=== PATIENT | female | born 1960 | race Caucasian/White ===

== ENCOUNTER → 2019-04-04 | Outpatient (CLI) | payer OTHER ==
[2019-04-04 13:23] LABS: INR 0.8 (<1.2); Prothrombin Time 9.4 sec (9.0-12.0)
[2019-04-04 13:24] LABS: HCT 40.6 % (34.0-46.0); HGB 13.1 gm/dL (11.4-16.0); MCH 31.2 pg (25.0-35.0); MCHC 32.3 g/dL (31.0-37.0); MCV 96.6 fL (80.0-100.0); Mean Platelet Volume 6.8; Platelet Count 272 k/uL (150-450); RDW 14.3 % (11.5-15.5)
[2019-04-04 13:25] LABS: Albumin 4.3 g/dL (3.5-5.0); Calcium 9.7 mg/dL (8.4-10.2); Potassium 3.9 mmol/L (3.5-5.1); Total Bilirubin 0.5 mg/dL (0.2-1.3); Total Protein 6.8 g/dL (6.3-8.2)
[2019-04-04 14:08] LABS: Appearance,Urine Clear (Clear); Bacteria,Urine Rare /hpf; Bilirubin,Urine Negative (Negative); Blood,Urine Small (Negative); Color,Urine Yellow; Glucose,Urine (UA) Negative (Negative); Ketones,Urine Negative (Negative); Leukocyte Esterase,Urine Negative (Negative); Mucus,Urine Rare /hpf; Nitrite,Urine Negative (Negative); PH, Urine 5.5 (5.0-8.0); Protein,Urine Negative (Negative); RBC,Urine 1 /hpf (0-5); Specific Gravity,Urine 1.019 (1.001-1.035); Squamous Epithelial Cell,Urine 5 /hpf (0-4); Urobilinogen,Urine <2.0 mg/dL (<2.0); WBC,Urine 1 /hpf (0-5)
== END | disposition home or self-care (01) ==
LOC: LABPAT 12:31
PROVIDERS: ATTEND Orthopaedic Surgery
DX: Z01.812 Encounter for preprocedural laboratory examination (principal); M16.11 Unilateral primary osteoarthritis, right hip
CPT/HCPCS: 36415; 80053; 81001; 85027; 85610; 85730; 87070

== ENCOUNTER 2019-04-14 11:22 | Inpatient (IN) | payer OTHER ==
[~2019-04-14 11:22] MED LIST: ACETAMINOPHEN TAB 500 MG TAB PO ONE; DEXAMETHASONE SOD PHOSPHATE 10 MG/ML 1 ML VIAL IV ONE; LIDOCAINE 1% 20 ML VIAL (10MG/ML) FOR IV START INTRADERMA PRN; MELOXICAM 7.5 MG TAB PO ONE; ONDANSETRON 4 MG/2 ML VIAL IVP PRN; TRANEXAMIC ACID 1,000 MG in SODIUM CHLORIDE 0.9% 100 ML IVPB ONE
[2019-04-14] MEDS ORDERED: ROPIVACAINE 246.25 MG, EPINEPHrine 0.5 MG, KETOROLAC 30 MG, cloNIDine HCL/PF 80 MCG, WA... MISCELLANE ONE ×5 (11:49)
[2019-04-14] MEDS: LACTATED RINGERS 1,000 ML IV SCH (12:22)
[2019-04-14] MEDS ORDERED: hydrOXYzine PAMOATE 25 MG CAP PO PRN (13:39)
[2019-04-14] MEDS ORDERED: DIAZEPAM 5 MG TAB PO PRN (13:39)
[2019-04-14] MEDS ORDERED: HYDROcodone/APAP 5-325MG 1 EACH TAB PO PRN (13:39)
[2019-04-14] MEDS ORDERED: NALOXONE 0.4 MG/ML 1 ML VIAL IV PRN (13:39)
[2019-04-14] MEDS ORDERED: ONDANSETRON 4 MG/2 ML VIAL IVP PRN (13:39)
[2019-04-14] MEDS ORDERED: HYDROmorphone 1 MG/ML 1 ML SYRINGE IVP PRN (13:39)
[2019-04-14] MEDS ORDERED: HYDROmorphone 0.5 MG/0.5 ML SYRINGE IVP PRN ×2 (13:39)
[2019-04-14] MEDS ORDERED: MAGNESIUM HYDROXIDE 2,400 MG/10 ML CUP PO PRN (13:39)
[2019-04-14] MEDS ORDERED: SODIUM CHLORIDE 0.9% 100 ML BAG ONE (13:45)
[2019-04-14] MEDS ORDERED: MIDAZOLAM 2 MG/2 ML VIAL ONE (13:45)
[2019-04-14] MEDS ORDERED: PROPOFOL 10 MG/ML 20 ML VIAL IV ONE (13:45)
[2019-04-14] MEDS ORDERED: TRANEXAMIC ACID 1,000 MG/10 ML VIAL ONE (13:45)
[2019-04-14] MEDS ORDERED: LACTATED RINGERS 1,000 ML BAG IV ONE (13:45)
[2019-04-14] MEDS ORDERED: fentaNYL (PF) 50 MCG/ML 2 ML AMP ONE (13:45)
[2019-04-14] MEDS ORDERED: ceFAZolin 3,000 MG in SODIUM CHLORIDE 0.9% IRRIGATIO 3,000 ML IRRIGATION ONE (13:52)
[2019-04-14] MEDS ORDERED: LACTATED RINGERS 1,000 ML IV ONE ×2 (14:31→16:32)
--- NOTE | 2019-04-14 15:45 | P.OP ---
Date of Procedure: 04/14/19 Preoperative Diagnosis: Severe osteoarthritis right hip Postoperative Diagnosis: Severe osteoarthritis right hip Procedure(s) Performed: Right total hip arthroplasty with a direct anterior approach Implants: Hernandez and nephew Polarstem size 4 standard Hernandez & Nephew R3, 3 hole acetabular shell, 52 mm Hernandez [employer] Nephew reflection 6.5 mm cancellus screw, 20 mm 2 Hernandez [employer] Nephew R3, XLPE 20 acetabular liner Hernandez & Nephew Oxinium femoral head 36 m, +0 All components were press-fit. The articulation is Oxinium on polyethylene. Anesthesia: spinal Surgeon: Dong Solares Chief Petroleum Engineer #1: Duyen Luu Estimated Blood Loss (ml): 120 (60 mL returned with Cell Saver) Pathology: other (Femoral head) Condition: stable Disposition: PACU Indications for Procedure: After failure of conservative treatment we discussed the surgical and nonsurgical treatment options at length. Patient wishes to proceed with a total hip arthroplasty with a direct anterior approach. Complications specific to this procedure were discussed at length, including but not limited to infection, leg length discrepancy, dislocation, and nerve injury. Patient is aware of all these complications and informed consent was obtained Operative Findings: The operative findings are consistent with severe osteoarthritis of the right hip Description of Procedure: Patient was seen and evaluated in the preoperative area, consent was reviewed, and the surgical site was marked with a skin marker. Patient was then brought to the operating room and given prophylactic antibiotics intravenously. 1 g of Tranexamic acid was also given. A spinal anesthetic was administered by the anesthesia department. The patient was then placed on the [place] table with the bony prominences well-padded. The hip area was then prepped and draped in usual sterile fashion. A universal timeout was then performed, which confirmed the patient's name, surgical site, ALLERGIES, and procedure being performed. Next the incision site was located at 1 cm distal and 1 cm lateral to the anterior superior iliac spine. The skin and subcutaneous tissues were sharply incised. Incision was carefully dissected down to the fascia overlying the tensor fascia ayanna muscle. This fascia was then incised in line with the incision. Next, using blunt finger dissection, the tensor fascia ayanna muscle was dissected off its investing fascia. The muscle was then carefully retracted laterally with a cobra retractor over the lateral neck of the femur. Next, the circumflex vessels were identified and cauterized using the AquaMantis device. The anterior hip capsule was then exposed. The capsule was then opened and an inverted T fashion. Cobra retractors were then placed intracapsularly. The proximal femur was then visualized. The femoral neck was then osteotomized appropriate level above the lesser trochanter. Small amount of traction was placed with the [place] table. A small wedge of bone was then removed from the remaining femoral head. Next, using a corkscrew femoral head was easily removed from the acetabulum. On gross visual inspection, the femoral head had complete loss of articular cartilage in mu ltiple periarticular osteophytes. Attention was then turned to the acetabulum. the acetabulum was exposed and any remaining labrum was excised. Sequential reaming of the acetabulum was performed using fluoroscopic guidance. When the appropriate size was reached, a trial was then placed. The position and fit of the trial was checked with fluoroscopy. The trial was then removed. Then, using fluoroscopic guidance, the final implant was impacted at 20 of anteversion and 40 of abduction, and fully seated in the acetabulum. 2 screws were then placed in the acetabulum. Again fluoroscopy was used to check position of the screws. Next, the liner was then impacted, with a 20 elevated liner located in the anterior superior quadrant. Component locking was confirmed. Attention was then directed to the femur. With the aid of the [place] table, the femur was externally rotated to approximately 130, extended, and abducted under the opposite leg. A side hook was then placed under the proximal femur, and the side hook elevator was used to elevate the proximal femur. Retractors were then placed. A capsular release was performed, as well as a release of the conjoined tendon, which afforded excellent visualization of the proximal femur. Next, a box osteotome was used to lateralize the proximal femur. A magazine hand was then used to locate the femoral canal. Sequential broaching was then performed with appropriate size which afforded excellent fixation in the proximal femur. A trial was then placed with appropriate head and neck, and the hip was gently reduced with the aid of the [place] table. Fluoroscopy was then used to check position of the components, as well as to ensure equal leg lengths. The hip was then gently dislocated and the trials were then removed. Final implants were then impacted and the hip was again reduced. Final fluoroscopic x-rays confirmed that the components were in anatomic position, as well as equal leg lengths. The hip was also taken through range of motion, and found to be stable. The hip was then copiously irrigated with antibiotic solution with pulsatile lavage. The hip was then irrigated with Irrisept solution. The soft tissues were then injected with a ropivacaine solution, which consisted of 246.25 mg of ropivacaine, 0.5 mg of epinephrine, 30 mg of Toradol, 80 g of clonidine, and 48.45 mL of sterile water, for a total of 100 mL of fluid injected. A second dose of 1 g of Tranexamic acid was also given. the fascia was then closed with 2-0 strata fix suture. The subcutaneous tissue was closed with 3-0 Vicryl. The subcuticular tissue was closed with 3-0 strata fix suture. The skin was then closed with Dermabond glue and a sterile silver dressing. The patient was then transferred to the recovery room in stable co ndition. The surgery assistant SENDY Ellis was required due to the complexity of surgery, and the need for skilled salesperson surgical appliances for positioning, draping, exposure, retraction, and closure of the wound.
[2019-04-14] MEDS ORDERED: KETOROLAC 30 MG/ML 1 ML VIAL IVP ONE (16:03)
[2019-04-14] MEDS: HYDROmorphone 0.5 MG/0.5 ML SYRINGE IVP PRN ×4 (16:04→17:13)
--- NOTE | 2019-04-14 17:56 | XR ---
Fluoroscopy History: RT ANTERIOR HIP RT ANTERIOR HIP. 1 MN 20 SECS FL. 2 IMAGES SAVED
[2019-04-14] MEDS ORDERED: CITALOPRAM HYDROBROMIDE 20 MG TAB PO SCH (21:00)
[2019-04-14] MEDS ORDERED: ARIPiprazole 15 MG TAB PO SCH (21:00)
[2019-04-14] MEDS ORDERED: SENNOSIDES-DOCUSATE SODIUM 1 EACH TAB PO SCH (21:00)
[2019-04-14] MEDS ORDERED: lamoTRIgine 100 MG TAB PO SCH (21:00)
--- NOTE | 2019-04-14 21:26 | P.CONS ---
History of Present Illness - Reason for Consult Consult date: 04/14/19 medical management post op Requesting physician: Dong Solares - Chief Complaint scheduled right total hip arthroplasty - History of Present Illness 58-year-old female with history of depression Patient presented to Hospital for scheduled right total hip arthroplasty patient has been complaining of right hip pain over the past 4 years getting worse despite conventional conservative management. Patient reports that over the past week she couldn't even walk due to pain in her right hip. Patient had surgery done today tolerated procedure per day well known observed immediate postoperative complications denies any chest pain or trouble breathing patient tolerated by mouth intake. Patient reports that pain is well tolerated at this time. Patient reports history of smoking and depression. No other medical problems Patient currently denies any abdominal pain nausea vomiting fevers chills denies any leg pain. Review of Systems Pertinent positives as noted in HPI. All other systems were reviewed and are negative Past Medical History Past Medical History: GERD/Reflux, Hearing Disorder / Deafness, Hyperlipidemia, Osteoarthritis (OA) Additional Past Medical History / Comment(s): Hx heart murmur, diverticulosis, IBS, slight hearing loss bilaterally. History of Any Multi-Drug Resistant Organisms: None Reported Past Surgical History: Section, Cholecystectomy, Hernia Repair Additional Past Surgical History / Comment(s): Right ovary removed. Past Psychological History: Depression Smoking Status: Current every day smoker Past Alcohol Use History: None Reported Additional Past Alcohol Use History / Comment(s): Has been smoking for 44 yrs, 1 - 1 1/2PPD. Past Drug Use History: None Reported - Past Family History Sister(s) Family Medical History: Cancer Additional Family Medical History / Comment(s): Breast cancer. Medications and Allergies Home Medications Medication Instructions Recorded Confirmed Type ARIPiprazole [Abilify] 15 mg PO HS 04/08/19 04/14/19 History Citalopram Hydrobromide [CeleXA] 20 mg PO HS 04/08/19 04/14/19 History Ranitidine HCl [Zantac] 300 mg PO BID 04/08/19 04/14/19 History lamoTRIgine [LaMICtal] 200 mg PO HS 04/08/19 04/14/19 History Allergies Allergy/AdvReac Type Severity Reaction Status Date / Time alprazolam [From Xanax] Allergy Confusion Verified 04/14/19 15:41 phenobarbital Allergy Rash/Hives Verified 04/14/19 15:41 tramadol Allergy Anaphylaxis Verified 04/14/19 15:41 Physical Exam Vitals: Vital Signs Temp Pulse Pulse Resp BP Pulse Ox 04/14/19 18:00 98 F 60 12 123/77 93 L 04/14/19 17:33 94 16 115/66 93 L 04/14/19 17:03 67 18 136/65 04/14/19 16:33 66 18 151/69 92 L 04/14/19 16:17 67 18 164/70 92 L 04/14/19 16:02 70 16 164/70 92 L 04/14/19 15:46 97.7 F 71 17 128/65 95 04/14/19 11:45 97.2 F L 64 18 177/75 95 Intake and Output 04/14/19 04/14/19 04/14/19 06:59 14:59 22:59 Intake Total 1451 900 Output Total 120 Balance 1451 780 Intake: IV 1451 900 Output: Estimated Blood Loss 120 Constitutional: No acute distress, conversant, pleasant Eyes: Anicteric sclerae, moist conjunctiva, no lid-lag Pupils equal round reactive to light ENMT: NC/AT Oropharynx clear, no erythema, or exudates Neck: Supple, FROM, no masses, or JVD No carotid bruits No thyromegaly Lungs: Clear to auscultation Clear to percussion Normal respiratory effort, no accessory muscle use Cardiovascular: Heart regular in rate and rhythm, No murmurs, gallops, or rubs No peripheral edema Abdominal: Soft Nontender, no guarding, rebound or rigidity Abdomen moving with respiration Normoactive bowel sounds No hepatomegaly, No splenomegaly No palpable mass No abdominal wall hernia noted Skin: Normal temperature, tone, texture, turgor No induration No subcutaneous nodules No rash, lesions No ulcers Extremities: Surgical dressing over the right hip looks clean dry and inta ct no evidence of bruising swelling or ecchymosis. No digital cyanosis No clubbing Pedal pulses intact and symmetrical Radial pulses intact and symmetrical No calf tenderness Psychiatric: Alert and oriented to person, place and time Appropriate affect fair judgment Neuro Muscles Strength 5/5 in all 4 extremities with limited exam over right lower extremity due to recent surgery Sensation to light touch grossly present throughout Cranial nerves II-XII grossly intact No focal sensory deficits Lymphatics: no palpable cervical or supraclavicular , or inguinal lymph nodes Assessment and Plan Assessment: 58-year-old female with history of depression admitted as inpatient for scheduled right total hip arthroplasty tolerated procedure pre-well medicine consulted for medical management postop. Patient seems to have tolerated procedure well no observed immediate complications postoperatively Plan: History of depression Continue home medications Tobacco smoking Counseled to quit smoking Nicotine replacement therapy offered Right hip osteoarthritis status post right total hip arthroplasty postoperative day 0 Tolerated procedure well Management of pain and DVT prophylaxis per orthopedics Follow up labs in a.m. CBC and basic metabolic panel Thank you for allowing us to participate in the care of this patient. Do not hesitate to contact us with questions. Someone can be reached from the [facility] hospitalist group at all hours of the day at [phone].
[2019-04-14] MEDS: SODIUM CHLORIDE 0.9% 1,000 ML IV SCH ×2 (21:42→22:54)
[2019-04-14] MEDS: FAMOTIDINE 20 MG TAB PO SCH (22:23)
[2019-04-14] MEDS: ASPIRIN 325 MG TAB PO SCH (22:23)
[2019-04-14] MEDS: HYDROcodone/APAP 5-325MG 1 EACH TAB PO PRN (22:53)
[2019-04-15] MEDS: NICOTINE 21MG/24HR PATCH TRANSDERM SCH ×2 (00:23→08:11)
[2019-04-15 01:10] VITALS: BMI 33.0
[2019-04-15 05:55] VITALS: RESP 16
[2019-04-15 07:12] LABS: Basophils % (A) 0 %; Eosinophils # (A) 0.1 k/uL (0-0.7); Eosinophils % (A) 1 %; HCT 35.3 % (34.0-46.0); HGB 11.7 gm/dL (11.4-16.0); Lymphocytes # (A) 1.6 k/uL (1.0-4.8); Lymphocytes % (A) 16 %; MCH 31.7 pg (25.0-35.0); MCHC 33.2 g/dL (31.0-37.0); MCV 95.4 fL (80.0-100.0); Mean Platelet Volume 6.6; Monocytes # (A) 0.8 k/uL (0-1.0); Monocytes % (A) 8 %; Neutrophils # (A) 7.4 k/uL (1.3-7.7); Neutrophils % (A) 74 %; Platelet Count 223 k/uL (150-450)
[2019-04-15] MEDS: HYDROcodone/APAP 5-325MG 1 EACH TAB PO PRN (07:18)
[2019-04-15 07:34] LABS: Calcium 9.1 mg/dL (8.4-10.2); Potassium 4.2 mmol/L (3.5-5.1)
[2019-04-15] MEDS: ASPIRIN 325 MG TAB PO SCH (08:08)
[2019-04-15] MEDS: MELOXICAM 7.5 MG TAB PO SCH ×2 (08:09→09:39)
[2019-04-15] MEDS: FAMOTIDINE 20 MG TAB PO SCH (08:09)
[2019-04-15 08:27] VITALS: BP 117/74; PULSE 71; TEMP 97.4
[2019-04-15] MEDS: LACTATED RINGERS 1,000 ML IV SCH (10:09)
--- NOTE | 2019-04-15 10:24 | P.PN ---
Subjective Progress Note Date: 04/15/19 Patient seen and examined at bedside, laying in bed and reports some lower back and tailbone pain denies any pain in the right hip, has been up and ambulatory. No acute events overnight Objective - Vital Signs Vital signs: Vital Signs Temp 97.4 F L 04/15/19 07:28 Pulse 71 04/15/19 07:28 Resp 16 04/15/19 04:00 BP 117/74 04/15/19 07:28 Pulse Ox 92 L 04/15/19 07:28 Intake & Output 04/14/19 04/15/19 04/15/19 18:59 06:59 18:59 Intake Total 2351 Output Total 120 Balance 2231 Intake: IV 2351 Output: Estimated Blood Loss 120 Other: Voiding Method Toilet # Voids 1 - Exam Constitutional: No acute distress, conversant, pleasant Eyes: Anicteric sclerae, moist conjunctiva, no lid-lag, PERRLA ENMT: NC/AT,Oropharynx clear, no erythema, exudates Neck:Supple, FROM, no masses, or JVD, No carotid bruits; No thyromegaly Lungs: Clear to auscultation, Clear to percussion, Normal respiratory effort, no accessory muscle use Cardiovascular: Heart regular in rate and rhythm, No murmurs, gallops, or rubs no peripheral edema Abdominal: Soft Nontender, nom distended, no guarding, no rebound or rigidity, Normoactive bowel sounds No hepatomegaly, No splenomegaly, No palpable mass No abdominal wall hernia noted Skin: Dressings on the right hip looked clean dry and intact no evidence of any severe bruising or ecchymosis Extremities:No digital cyanosis No clubbing, Pedal pulses intact and symmetrical Radial pulses intact and symmetrical Normal gait and station, No calf tenderness Psychiatric: Alert and oriented to person, place and time, Appropriate affect Intact judgement Neuro: Muscles Strength 5/5 in all 4 extremities, Sensation to light touch grossly present throughout, Cranial nerves II-XII grossly intact. No focal sensory deficits - Labs CBC & Chem 7: 04/15/19 06:33 04/15/19 06:33 Labs: Abnormal Lab Results - Last 24 Hours (Table) 04/15/19 04/15/19 Range/Units 06:33 06:33 RBC 3.70 L (3.80-5.40) m/uL BUN 19 H (7-17) mg/dL Assessment and Plan (1) Depression Narrative/Plan: * Continue home medications Current Visit: Yes Status: Chronic Code(s): F32.9 - MAJOR DEPRESSIVE DISORDER, SINGLE EPISODE, UNSPECIFIED SNOMED Code(s): 25585559 (2) Smoking Current Visit: Yes Status: Chronic Code(s): F17.200 - NICOTINE DEPENDENCE, UNSPECIFIED, UNCOMPLICATED SNOMED Code(s): 45148794 (3) Osteoarthritis of right hip Current Visit: Yes Status: Chronic Code(s): M16.11 - UNILATERAL PRIMARY OSTEOARTHRITIS, RIGHT HIP SNOMED Code(s): 255473837504644 (4) S/P total hip arthroplasty Current Visit: Yes Status: Acute Code(s): Z96.649 - PRESENCE OF UNSPECIFIED ARTIFICIAL HIP JOINT SNOMED Code(s): 468659092797 Plan: * The patient doing well hemodynamically stable * Medically cleared for discharge we'll sign off today * For further questions or concerns please do not hesitate to contact some inpatient team
--- NOTE | 2019-04-15 12:10 | P.DS ---
Providers Date of admission: 04/14/19 11:22 Expected date of discharge: 04/15/19 Attending physician: Dong Solares Consults: 04/14/19 13:39 Consult Physician Routine Consulting Provider: Oralia Mckinley Consult Reason/Comments: medical management Do you want consulting provider notified?: Yes Primary care physician: Bal Bentley - Discharge Diagnosis(es) (1) S/P total hip arthroplasty Current Visit: Yes Status: Acute (2) Osteoarthritis of right hip Current Visit: Yes Status: Chronic Hospital Course: This is a 58-year-old female with known history of degenerative arthritis of the right hip. The patient presents for evaluation. After discussion and consideration patient elects to proceed with total hip arthroplasty. The patient is seen preoperatively by Dr. Solares and medically cleared for surgery by their primary care physician. Patient is admitted to [facility] on 04/14/2019 for total hip arthroplasty. The procedures performed without complication or sequelae. The patient is doing well postoperatively. Labs and vital signs are stable on day of discharge. On day of discharge patient's hip incision is healing well. There is minimal erythema. There is no drainage noted at this time. There is minimal soft tissue swelling to the hip and thigh. Patient has full foot and ankle motion without difficulty or pain. Calf is soft and nontender to palpation. Neurovascular status to the right lower extremity is intact. Patient is discharged home in good condition. Opioid start talking form is reviewed and signed at patient bedside. Please see med rec for accurate list of home medications. Plan - Discharge Summary Discharge Rx Participant: No New Discharge Prescriptions: New Aspirin 325 mg PO BID #60 tab HYDROcodone/APAP 5-325MG [[place] 5-325] 1 - 2 tab PO Q6HR PRN #56 tab PRN Reason: Pain Sennosides [Senokot] 1 tab PO BID #60 tablet No Action lamoTRIgine [LaMICtal] 200 mg PO HS Ranitidine HCl [Zantac] 300 mg PO BID Citalopram Hydrobromide [CeleXA] 20 mg PO HS ARIPiprazole [Abilify] 15 mg PO HS Discharge Medication List ARIPiprazole [Abilify] 15 mg PO HS 04/08/19 [History] Citalopram Hydrobromide [CeleXA] 20 mg PO HS 08/06/19 [History] Ranitidine HCl [Zantac] 300 mg PO BID 04/08/19 [History] lamoTRIgine [LaMICtal] 200 mg PO HS 04/08/19 [History] Aspirin 325 mg PO BID #60 tab 04/15/19 [Rx] HYDROcodone/APAP 5-325MG [[place] 5-325] 1 - 2 tab PO Q6HR PRN #56 tab 04/15/19 [Rx] Sennosides [Senokot] 1 tab PO BID #60 tablet 04/15/19 [Rx] Follow up Appointment(s)/Referral(s): Dong Solares DO [Doctor of Osteopathic Medicine] - 2 Weeks Activity/Diet/Wound Care/Special Instructions: Weightbearing as tolerated with walker. Leave dressing intact. Dressing may be removed by home care nurse or by patient in 10 days. May shower with dressing on. Please follow-up with [facility] in 2 weeks and call with any questions or concerns, . Discharge Disposition: HOME WITH HOME HEALTH SERVICES
--- NOTE | 2019-04-16 21:30 | CDI ---
Documentation Clarification Form Date: 04/16/2019 9:20:00 PM From: Nevin Balderas Phone: If you have a question regarding this query, please contact Maricarmen Aaron at [phone] between 8am and 5pm. Admit Date: 04/14/2019 11:22:00 AM Patient Name: Maya Macedo Visit Number: [id number] Discharge Date: 04/15/2019 1:58:00 PM ATTENTION: The Clinical Documentation Specialists (CDI) and [facility] Coding Staff appreciate your assistance in clarifying documentation. Please respond to the clarification below the line at the bottom and electronically sign. The CDI & [facility] Coding staff will review the response and follow-up if needed. Please note: Queries are made part of the Legal Health Record. If you have any questions, please contact the author of this message via ITS. Dr. Dong Solares The patient presented with arthritis of the right hip. History/Risk Factors: Documentation in the [facility] report states that the patient states she fell down stairs five years agos and developed instant pain in her hip and has had pain since then. Documentation in the discharge summary states the patient has degenerative arthritis. Clinical Indicators: Right hip pain. Radiology findings: X-rays of the pelvis and right hip from 02/26/19 show severe degenerative changes with complete loss of articular cartilage and gattening of the femoral head. Treatment: Right total hip arthroplasty In your professional opinion, can you please clarify the cause of the arthritis? Post-traumatic Degenerative Other, please specify Unable to determine MTDD
--- NOTE | 2019-04-22 18:01 | CDI ---
Documentation Clarification Form Date: 04/22/19 From: Nevin Balderas Phone: If you have a question regarding this query, please contatct Maricarmen Aaron at [phone] between 8am and 5pm. Admit Date: 04/14/2019 11:22:00 AM Patient Name: Maya Macedo Visit Number: [id number] Discharge Date: 04/15/2019 1:58:00 PM ATTENTION: The Clinical Documentation Specialists (CDI) and [facility] Coding Staff appreciate your assistance in clarifying documentation. Please respond to the clarification below the line at the bottom and electronically sign. The CDI & [facility] Coding staff will review the response and follow-up if needed. Please note: Queries are made part of the Legal Health Record. If you have any questions, please contact the author of this message via ITS. Dr. Dong Solares Thank you for signing the previous query. Please document a response before signing this query. The patient presented with arthritis of the right hip. History/Risk Factors: Documentation in the [facility] report states that the patient states she fell down stairs five years agos and developed instant pain in her hip and has had pain since then. Documentation in the discharge summary states the patient has degenerative arthritis. Clinical Indicators: Right hip pain. Radiology findings: X-rays of the pelvis and right hip from 02/26/19 show severe degenerative changes with complete loss of articular cartilage and gattening of the femoral head. Treatment: Right total hip arthroplasty In your professional opinion, can you please clarify the cause of the arthritis? Post-traumatic Degenerative Other, please specify Unable to determine MTDD
== END 2019-04-15 13:58 | disposition home health service (06) | DRG 470 ==
LOC: 2ORMAIN 11:22 → 4SSUR 17:18
PROVIDERS: ADMIT Orthopaedic Surgery; ATTEND Orthopaedic Surgery
PROC: 30233N0 Transfusion of Autologous Red Blood Cells into Peripheral Vein, Percutaneous Approach (ICD-10-PCS; 2019-04-14)
PROC: 0SR906A Replacement of Right Hip Joint with Oxidized Zirconium on Polyethylene Synthetic Substitute, Uncemented, Open Approach (ICD-10-PCS; principal; 2019-04-14 12:30)
DX: M16.11 Unilateral primary osteoarthritis, right hip (principal); E78.5 Hyperlipidemia, unspecified; F17.200 Nicotine dependence, unspecified, uncomplicated; F32.9 Major depressive disorder, single episode, unspecified; H91.90 Unspecified hearing loss, unspecified ear; K21.9 Gastro-esophageal reflux disease without esophagitis; K58.9 Irritable bowel syndrome, unspecified; R01.1 Cardiac murmur, unspecified; K57.90 Diverticulosis of intestine, part unspecified, without perforation or abscess without bleeding; R00.2 Palpitations; Z90.721 Acquired absence of ovaries, unilateral; Z79.899 Other long term (current) drug therapy; Z88.5 Allergy status to narcotic agent; Z88.8 Allergy status to other drugs, medicaments and biological substances; Z80.3 Family history of malignant neoplasm of breast; Z71.6 Tobacco abuse counseling
CPT/HCPCS: 73501; 80048; 85025; 86850; 86900; 86901; 88300